=== PATIENT | female | born 1990 | race Caucasian/White ===

== ENCOUNTER 2019-05-21 20:59 | Emergency (ER) | payer OTHER ==
[2019-05-21] MEDS ORDERED: IBUPROFEN LIQUID (PED) 20 MG/ML CUP PO (21:52)
[2019-05-21] MEDS ORDERED: ACETAMINOPHEN 160 MG/5ML CUP PO (21:52)
== END 2019-05-21 22:38 | disposition home or self-care (01) ==
LOC: FTE 20:59
DX: K64.9 Unspecified hemorrhoids (principal)
CPT/HCPCS: 99284; Z7502